=== PATIENT | female | born 1975 | race Hispanic/Latino ===

== ENCOUNTER 2024-05-29 15:03 | Emergency (ER) | payer SELFPAY ==
[2024-05-29 15:05] VITALS: BP 157/97
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
[2024-05-29 16:03] LABS: Glucose - Point of Care 286 mg/dl (70-99)
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
== END 2024-05-29 17:25 | disposition home or self-care (01) ==
LOC: EMR 15:03
PROVIDERS: EMERGENCY PHYSICIAN Emergency Medicine
DX: S50.812A Abrasion of left forearm, initial encounter (principal); S50.811A Abrasion of right forearm, initial encounter; Y09 Assault by unspecified means
CPT/HCPCS: 99282; 82962